=== PATIENT | male | born 1955 | race Caucasian/White ===

== ENCOUNTER 2017-05-05 10:55 | Emergency (ER) | payer BC ==
[2017-05-05 11:14] VITALS: BP 126/75
[2017-05-05] MEDS ORDERED: Ondansetron 4 MG Tab.DIS PO ONE (11:27)
[2017-05-05] MEDS ORDERED: Morphine 4 MG/ML Syringe IM ONE (11:27)
--- NOTE | 2017-05-05 11:31 | EDM.PDOC ---
ED HPI GENERAL MEDICAL PROBLEM - General Chief Complaint: Upper Extremity Injury/Pain Stated Complaint: LEFT HAND PAIN Time Seen by Provider: 05/05/17 11:28 Source of Information: Reports: Patient History Limitations: Reports: No Limitations - History of Present Illness INITIAL COMMENTS - FREE TEXT/NARRATIVE: 61 yo male presents from clinic with severe left wrist pain. States that pain started Wednesday and became worse today. No other complaints. sensation intact however Range of motion limited by pain. Per clinic, pt was "shaking from pain, concerned there may be a vascular injury". Pt with adequate cap refil and pulse upon arrival Onset Date: 05/01/17 Duration: Getting Worse Location: Reports: Upper Extremity, Left Quality: Reports: Pressure, Stabbing, Throbbing Severity: Severe Improves with: Reports: None Worsens with: Reports: Movement Context: Reports: Activity Left Wrist Pain Score (Numeric/FACES): 10 - Related Data Allergies Allergy/AdvReac Type Severity Reaction Status Date / Time gabapentin Allergy Vomiting Verified 05/05/17 11:15 hydromorphone [From Dilaudid] Allergy Nausea Verified 05/05/17 11:15 Home Meds: Home Meds Aspirin [Ecotrin] 81 mg PO DAILY 05/05/17 [History] Hydrochlorothiazide 12.5 mg PO DAILY 05/05/17 [History] Hydrocodone/Acetaminophen [Hydrocodon-Acetaminophen 5-325] 1 tab PO ASDIRECTED PRN 05/05/17 [History] Levothyroxine [Synthroid] 50 mcg PO DAILY 05/05/17 [History] Pregabalin [Lyrica] 75 mg PO DAILY 05/05/17 [History] Social & Family History - Tobacco Use Smoking Status *Q: Never Smoker Second Hand Smoke Exposure: No - Caffeine Use Caffeine Use: Reports: Coffee - Recreational Drug Use Recreational Drug Use: No Review of Systems - Review of Systems Review Of Systems: ROS reveals no pertinent complaints other than HPI. ED EXAM, GENERAL - Physical Exam Exam: See Below Exam Limited By: No Limitations General Appearance: Alert, WD/WN, No Apparent Distress Neck: Normal Inspection, Supple, Non-Tender, Full Range of Motion Respiratory/Chest: No Respiratory Distress, Lungs Clear, Normal Breath Sounds, No Accessory Muscle Use, Chest Non-Tender Cardiovascular: Normal Peripheral Pulses, Regular Rate, Rhythm, No Edema, No Gallop, No JVD, No Murmur, No Rub Peripheral Pulses: 4+: Brachial (L), Brachial (R), Radial (L), Radial (R) Extremities: Normal Inspection, No Pedal Edema, Normal Capillary Refill, Arm Pain, Limited Range of Motion Neurological: Alert, Oriented, CN II-XII Intact, Normal Cognition, Normal Gait, No Motor/Sensory Deficits Skin Exam: Warm, Dry, Intact, Normal Color, No Rash Course - Vital Signs Last Recorded V/S: Last Vital Signs Temp 97.5 F 05/05/17 11:05 Pulse 87 05/05/17 11:05 Resp 16 05/05/17 11:05 BP 126/75 05/05/17 11:05 Pulse Ox 99 05/05/17 11:05 - Orders/Labs/Meds Orders: Active Orders 24 hr Category Date Time Status Splinting [RC] ASDIRECTED Care 05/05/17 13:53 Ordered Meds: Medications Discontinued Medications Generic Name Dose Route Start Last Admin Trade Name Freq PRN Reason Stop Dose Admin Hydrocodone Bitart/Acetaminophen 1 tab 05/05/17 13:09 05/05/17 13:49 [place] 325-10 Mg PO 05/05/17 13:10 1 tab ONETIME ONE Administration Morphine Sulfate 4 mg 05/05/17 11:27 05/05/17 11:34 Morphine IM 05/05/17 11:28 4 mg ONETIME ONE Administration Ondansetron HCl 4 mg 05/05/17 11:27 05/05/17 11:34 Zofran Odt PO 05/05/17 11:28 4 mg ONETIME ONE Administration - Re-Assessments/Exams Free Text/Narrative Re-Assessment/Exam: 05/05/17 13:54 pain decreased. No acute findings. Informed patient that he will need ot follow up with an orthopedic doctor for further workup. Has hx of carpal tunnel disorder. Departure - Departure Time of Disposition: 13:55 Disposition: Home, Self-Care 01 Condition: Good Clinical Impression: Wrist pain, acute Qualifiers: Laterality: left Qualified Code(s): M25.532 - Pain in left wrist - Discharge Information Instructions: Cast or Splint Care, [id number], Wrist Splint, [id number] Forms: ED Department Discharge Additional Instructions: Make sure to follow up with your PCP for a referal for an orthopedic doctor. You may have problems with the tendons in the wrist. Keep the splint on for comfort. Take the pain meds as needed. return for worsening symptoms Care Plan Goals: Ciera # 10 - My Orders Last 24 Hours: My Active Orders 05/05/17 13:53 Splinting [RC] ASDIRECTED - Assessment/Plan Last 24 Hours: My Active Orders 05/05/17 13:53 Splinting [RC] ASDIRECTED
[2017-05-05] MEDS ORDERED: Acetaminophen/HYDROcodone 325-10 MG Tab PO ONE (13:09)
== END 2017-05-05 14:13 | disposition home or self-care (01) ==
LOC: DL.ED 10:55
DX: M25.532 Pain in left wrist (principal); Z88.5 Allergy status to narcotic agent; Z79.82 Long term (current) use of aspirin; Z79.899 Other long term (current) drug therapy
CPT/HCPCS: 73070; 73090; 73130; 96372; 99284; A9270; J2270